=== PATIENT | male | born 2000 | race Caucasian/White ===

== ENCOUNTER 2023-11-16 18:13 | Emergency (ER) | payer OTHER, SELFPAY ==
--- NOTE | ~2023-11-16 | XR_ITS ---
EXAMINATION: XR WRIST, LEFT CLINICAL INFORMATION: Fall with question of fracture COMPARISON: None available. TECHNIQUE: PA, lateral, and oblique views of the left wrist. FINDINGS: There is soft tissue swelling on the dorsum of the wrist with triquetral avulsion fracture again (see clements image). No other fracture. Alignment is anatomic with normal joint spaces. No erosions or abnormal soft tissue calcifications. XR/XR wrist LT 2V IMPRESSION: Triquetral avulsion fracture with associated soft tissue swelling.
[2023-11-16 18:34] VITALS: BP 129/90; BP 130/79; PULSE 76; PULSE 83; RESP 14; TEMP 37.1; O2SAT 100; O2SAT 98; BMI 21.5
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
[2023-11-16 19:35] VITALS: BP 121/84; PULSE 66; RESP 18; TEMP 36.7; O2SAT 100
[2023-11-16] MEDS: Ketorolac Tromethamine 60 MG/2 ML VIAL IM (19:47)
--- OUTSIDE RECORDS SUMMARY | 2023-11-16 20:28 | XMS_ITS | Continuity of Care Document ---
Author Organization [facility] ter Address [address] [place] [id number] Care Team Providers Care Research Chemical Engineer Name Role Phone Not on Staff, PCP Primary Care Physician Unavail able [place] [facility] [place]23 - 03/11/[address] [id number] Discharge Disposition: A-D/C Home Attending Physician: Nick Lopez MD Admitting Physician: Nick Lopez MD Referring Physician: Nick Lopez MD Allergies, Adverse Reactions, Alerts No Known Allergies Immunizations Given and Recorded Vaccine Date Status Refusal Reason tetanus/diphtheria/pertussis, acel(Tdap) 02/24/23 Given Medications acetaminophen 325 mg oral capsule 2 capsule = 650 mg, By Mouth, Every 4 hours, PRN Pain , Moderate, # 20 capsule, 0 Refills, Maintenance, 03/09/23 12:32:00 EDT, Capsule, Partial fill upon patient request if the prescription is for a schedule II opioid drug. Start Date: 03/09/23 Status: Ordered oxyCODONE 5 mg oral tablet 5 mg, 1, tablet, By Mouth, Every 6 hours, PRN, # 20 tablet, Refills 0, Tot. Refills 0, Acute 03/18/23 8:00:00 EDT, Pain , Severe, 03/11/23 8:00:00 EDT, Route to Pharmacy Electronically, [facility]/pharmacy #[id number], Partial fill upon patient request if the pres... Start Date: 03/11/23 Stop Date: 03/18/23 Status: Ordered Percocet-5 Tablet 1 tablet, Tablet, By Mouth, Every 3 hours, PRN for Pain , Mild, or Pain, Moderate, Routine, 03/11/23 9:51:00 EDT Start Date: 03/11/23 Stop Date: 03/11/23 Status: Discontinued Results Radiology Reports * Exam Date Time Procedure Performing Provider Status 03/11/23 9:16 AM C-Arm < 1 Hour Kamryn Amin; Auth (Veri fied) Notes: (C-Arm < 1 Hour) Reason For Exam: fractured clavicle RESULT: C-Arm < 1 Hour Clavicle Complete Left, C-Arm < 1 Hour INDICATION: Reason: fractured clavicle COMPARISON: None. TECHNIQUE: Fluoroscopy support was provided. There was no radiologist in attendance. Fluoroscopy time: 7.1 seconds Technologist time: 20 minutes Exposure: 0.68 mGy FINDINGS: Intraoperative fluoroscopy was performed and a total of 4 spot films of the left clavicle were obtained during the internal fixation procedure. Please refer to the operative note for full details. IMPRESSION: See above. WSN: [id number] Ordering Physician: Nick Lopez Dictated By: Jatinder Dotson MD Dictated Date/Time: 03/11/23 10:10 a Reviewed By: Jatinder Dotson MD Signed By: Jatinder Dotson MD Signed Date/Time: 03/11/23 10:10 am Transcribed By: JOSE Transcribed Date/Time: 03/11/23 10:09 am * Exam Date Time Procedure Performing Provider Status 03/11/23 9:16 AM Clavicle Complete Left Kamryn Amin; Mihaela th (Verified) Notes: (Clavicle Complete Left) Reason For Exam: fractured clavicle RESULT: Clavicle Complete Left Clavicle Complete Left, C-Arm < 1 Hour INDICATION: Reason: fractured clavicle COMPARISON: None. TECHNIQUE: Fluoroscopy support was provided. There was no radiologist in attendance. Fluoroscopy time: 7.1 seconds Technologist time: 20 minutes Exposure: 0.68 mGy FINDINGS: Intraoperative fluoroscopy was performed and a total of 4 spot films of the left clavicle were obtained during the internal fixation procedure. Please refer to the operative note for full details. IMPRESSION: See above. WSN: [id number] Ordering Physician: Nick Lopez Dictated By: Jatinder Dotson MD Dictated Date/Time: 03/11/23 10:10 a Reviewed By: Jatinder Dotson MD Signed By: Jatinder Dotson MD Signed Date/Time: 03/11/23 10:10 am Transcribed By: JOSE Transcribed Date/Time: 03/11/23 10:09 am Vital Signs Most recent to oldest [Reference Range]: 1 2 3 Height 169 cm (03/11/23 6:02 AM) 169 cm (03/09/23 12:29 PM) Weight 63.7 kg (03/09/23 12:29 PM) Oxygen Saturation [94-100 %] 95 % (03/11/23 11:30 AM) 97 % (03/11/23 11:15 AM) 97 % (03/11/23 11:00 AM) Pulse Rate [55-90 bpm] 56 bpm (03/11/23 6:02 AM) Body Mass Index [18.5-24.99 kg/m2] 22.3 kg/m2 (03/09/23 12:29 PM) Blood Pressure [90-138/55-84 mm Hg] 126/81mm Hg (03/11/23 11:30 AM) 126/77mm Hg (03/11/23 11:15 AM) 124/83mm Hg (03/11/23 11:00 AM) Respiratory Rate [16-30 br/min] 12 br/min *L* (03/11/23 11:30 AM) 13 br/min *L* (03/11/23 11:15 AM) 17 br/min (03/11/23 11:08 AM) Temperature [96.8-100.4 DegF] 98.2 DegF (03/11/23 10:45 AM) 98.1 DegF (03/11/23 10:00 AM) 98.1 DegF (03/11/23 6:02 AM) Liters per Minute 6 L/min (03/11/23 10:00 AM) Mode of Delivery (Oxygen) Room air (03/11/23 11:30 AM) Room air (03/11/23 10:15 AM) Simple face mask (03/11/23 10:00 AM) Blood pressure sites Arm, right (03/11/23 10:00 AM) Arm, right (03/11/23 6:02 AM) Temperature Route Temporal (03/11/23 10:45 AM) Temporal (03/11/23 10:00 AM) Temporal (03/11/23 6:02 AM) Dry Weight 60.5 kg (03/11/23 6:02 AM) 63.7 kg (03/09/23 12:29 PM) Weight Obtained Via Patient/family state d (03/09/23 12:29 PM) Dry Weight Obtained Via Standing scale (03/11/23 6:02 AM) Patient/family stated (03/09/23 12:29 PM) Social History Social History Type Response Smoking Status Never smoker; Tobacc o user in household: No entered on: 03/27/14 Sex Note * Dylan Llamas RN: PERFORM Event Display: Discharge/Transfer Note Hospital Authored Date: [id number] Nursing Discharge Note Entered On: 03/11/2023 12:08 EDT Performed On: 03/11/2023 12:06 EDT by Dylan Llamas RN Nursing Discharge Note 2 Discharge Time : 03/11/2023 12:10 EDT Discharge Level of Care at Discharge : Home/[facility]/Foster Care Patient Left Unit Via : Wheelchair Patient Accompanied Off Unit with : Parent DC Instructions Provided & Signed by Pt : Yes Patient Understands D/C Instructions : Yes Patient Instructions Discharge Signed : Yes Did Pt have Specialty Bed or Wound Vac : No Dylan Llamas RN - 03/11/2023 12:06 EDT * Dylan Llamas RN: PERFORM Event Display: Patient Education/Instruction Authored Date: [id number] Inpatient Adult Discharge Instructions [place] [id number] Name: EARL SEYMOUR : 2000 Visit: 03/11/2023 05:51:00 Current Date: 03/11/2023 10:59 Account: [id number] Inpatient Adult Discharge Instructions We would like to thank you for allowing us to assist you with your healthcare needs. The following includes patient education materials and information regarding your injury/illness. Our entire staffstrives to provide an excellent experience for our patients and their families. PLEASE ENSURE YOU FOLLOW-UP PER THE INSTRUCTIONS BELOW! ?? YOUR OPINION IS IMPORTANT TO US! Please complete the survey you may receive by mail or email. Your feedback will be used to make improvements to the healthcare experiences of our patients and their families. Surveys are administered by [employer] ?? If further treatment with your primary care physician or another doctor is recommended, it is important for you to keep the appointment. Call your primary care physician or return to the Emergency Department immediately if your condition worsens, fails to improve, or new symptoms develop. If you need to find a doctor, you can call [facility] Link for a referral at [phone] or toll free at [phone]) or log in to [email or web address].. ?? [facility], in keeping with [facility] guidance, no longer requires face masks for staff, patientsor visitors in most situations. Similiar to time spent indoors at other locations, there is the chance that you were exposed to repiratory viruses during your time with us (such as flu or COVID-19). If you develop symptoms concerning for a viral respiratory infection, please seek testing (and treatment if indicated) from your medical provider or home test kit. ?? You can view and manage your care through the patient portal or by using a health care darrell of your choosing. [employer] is a website that allows you to securely view your medical information including your hospital discharge summary, office visit summaries, medications and follow-up visits. You can also request appointments, renew medications, and request access to your medical information using a health care darrell of your choosing, or just ask a question. You can enroll at [email or web address] or register during your next office visit. You have been discharged from [facility], Patient Care Unit: [facility]. If you have any questions regarding these instructions after you leave, please call us and we will be happy to assist you. [facility] Your Care Team Attending Physician Nick Lopez MD Discharging Providers Nick Lopez MD Reason for Admission LT CLAVICLE FX DS Tests Performed Below is a partial list of the tests performed during your hospitalization. You may have had other tests and procedures not included in this list. Please discuss all test results with your provider. XR C-Arm < 1 Hour XR Clavicle Complete Left Primary Care Provider Not on Staff, PCP Advance Directive Health Care Proxy on File Yes - Health Care Proxy Discharge Vitals Temperature: 98.2 DegF Height: 169 cm Pulse Rate: 56 bpm Weight: 63.7 kg Respiratory Rate: 16 br/min Body Mass Index: 22.3 kg/m2 Systolic Blood Pressure: 130 mm Hg Body surface area: 1.73 Diastolic Blood Pressure:??85 mm Hg??High ?? Oxygen Saturation: 100 % ?? Studies Pending All tests and labs ordered during this hospital stay have been completed unless listed below. Please discuss all pending results with your provider listed above in these instructions. ?? No incomplete studies found What to do next Instructions From Your Doctor Discharge Orders Instructions from your Care Team Please call [facility] at [phone]??to schedule a follow up with Dr Lopez, he would like you to be seen in the office in 2 weeks. ?? You may remove the dressing in 48 hours and shower. Wash gently with soap and water, no scrubbing. Pat dry with a clean towel. No soaking (tub baths, hot tubs, swimming, etc) your incision until Dr Lopez tells you it is okay to do so. ?? Wear your sling unless showering or sleeping, until Dr Lopez tells you can remove it. ?? Avoid any movements at the shoulder. It is okay and you are encouraged to move your hand, wrist, and elbow gently. You Need to Schedule the Following Appointments Follow Up with??Nick Lopez MD When:??Within 1-2 day: call to discuss follow up visit Why: Please call the office in the next few days to schedule a follow up with Dr Lopez in 2 weeks. Where: [address] [place] [address] [place] [address] Discharge Medications EARL SEYMOUR :2000 Visit Date:03/11/2023 Medications: Please continue your medications until treatment is completed or stopped by your provider. Medications not listed below should be discontinued. Discuss any questions related to medications with your provider. What How Much When Instructions Next Dose New Oxycodone (oxyCODONE 5 mg oral tablet) 1 tab(s) Oral Every 6 hours as needed for Pain , Severe Pickup at [facility]/pharmacy #[id number] next dose available at 4:00pm, only take as needed Unchanged Acetaminophen (acetaminophen 325 mg oral capsule) 2 capsule Oral Every 4 hours as needed for Pain , Moderate as needed Pharmacy Information [facility]/pharmacy #[id number]: [address] [place] [phone] Test Results Below is a partial list of the most recent Laboratory test results done prior to this discharge. You may have had other tests and procedures not included in this list. Please discuss all test resultswith your provider. Allergies (NKA means No Known Allergies) NKA Problems No qualifying data available Education Materials Below is the list of Educational Leaflet Providered with your Discharge Instructions. Sling?? Surgery Medical Daystay Surgical Overnight Discharge Instructions?? Having Clavicle Fracture Open Reduction and Internal Fixation (ORIF)?? Valuables and Belongings I fully understand and agree that [facility] accepts no responsibility for all my personal property including clothing, toilet articles, radios, jewelry, dentures, hearing aids, rings, money, or any other property that is in my possession or is brought to me after admission. I understand certain valuables may be placed in a hospital safe for a short period of time. I understand that the hospital is not liable for loss or damage due to accident, fire, or other natural occurrence while said property is in the safe. I accept full responsibility for any personal property that I keep with me, and will not hold the hospital responsible in case of loss or disappearance. I acknowledge that i have been encouraged to send valuables and belongings home. ?? Date for Pt to Sign Valuables/Belongings: 03/11/23 06:41:00 ?? Valuables & Belongings ?? Clothes Electronic devices Jewelry Monetary Items Personal devices Miscellaneous Medications (Valuables) Valuables at Bedside Shirt, Shoes, Undergarments, Other: shorts Cell phone ? Valuables Sent Home ? Valuables Sent to Security ? Other Discharge Information ? Pulmonary Rehab Status?? Pulmonary Rehab Discharge Status?? Respiratory Rate: 16 br/min ? Common Emergency Awareness Tips IS IT A STROKE? Act FAST and Check for these signs: FACE Does the face look uneven? ARM Does one arm drift down? SPEECH Does their speech sound strange? TIME Call at any sign of stroke ?? Heart Attack Signs Chest discomfort: Most heart attacks involve discomfort in the center of the chest and lasts more than a few minutes, or goes away and comes back. It can feel like uncomfortable pressure, squeezing, fullness or pain. Discomfort in upper body: Symptoms can include pain or discomfort in one or both arms, back, neck, jaw or stomach. Shortness of breath: With or without discomfort. Other signs: Breaking out in a cold sweat, nausea, or lightheaded. Remember, MINUTES DO MATTER. If you experience any of these heart attack warning signs, call to get immediate medical attention! ?? Smoking can increase your chances of developing chronic health problems and can cause harmful effects to other family members in your house. If you smoke, you are strongly encouraged to quit. Please call [facility] [employer] Link at [phone] or [phone] ([phone]) or log in to [email or web address] for referrals to smoking cessation programs. ?? 506 Suicide & Crisis Lifeline is available 19/01 if you or someone you know needs to find a reason to keep living. By calling 847 you'll be connected to a skilled, trained counselor at a crisis center in your area. INPATIENT DISCHARGE INSTRUCTIONS SIGNATURE PAGE EARL SEYMOUR Location:[facility] Registration Date and Time:03/11/2023 05:51 EDT Primary Care Physician: Not on Staff, PCP Attending Physician: John MCDUFFIE, Nick Perez, I EARL SEYMOUR, have received the above patient education materials/instructions and have verbalized understanding. If ambulance or transport services are being used I further acknowledge being given a choice of service. ?? If you need to contact me, please call me at this number: . Patient/Procurement Inspector Name: Patient/Procurement Inspector Signature: Relationship to Patient: Witness Name/Signature: Date: * Bessie Albright RN: PERFORM Event Display: Patient Education Leaflets Authored Date: [id number] Sling ?? [id number] Sling A sling is designed to support your arm in a position of rest. It's used for injuries of the hand, forearm, upper arm, and shoulder. A shoulder that is immobilized too long can become stiff and lose range of motion. Your elbow can also get stiff. Follow up with your healthcare provider as advised and don't use the sling longer than directed. ?? Home use ??? Leave the sling in place as long as directed by your healthcare provider. Unless told otherwise, you may remove it when bathing, dressing, and when you go to sleep. ??? If approved by your healthcare provider, you can do gentle pendulum exercises. To do these: o Remove your sling. o Stand or sit with your arm vertical and close to your side. o Relax your shoulder muscles and gently swing the arm forward and back, side to side, and in small circles. o Do this for about 5 minutes once or twice a day. There should be only minimal pain with this exercise. If you have more than minimal discomfort, stop the exercise and call your healthcare provider. ??? The sling is adjustable. If it becomes loose, adjust it so that your forearm is horizontal (level with the ground). Your hand should be level with the elbow. ?? Last Reviewed Date: 2021 ?? [employer]. All rights reserved. This information is not intended as a substitute for professional medical care. Always follow your healthcare professional's instructions. ?? * Bessie Albright RN: PERFORM Event Display: Patient Education Leaflets Authored Date: [id number] Surgery Medical Daystay Surgical Overnight Discharge Instructions ?? 295 Medical Daystay/Surgical Overnight Discharge Instructions ? Since your coordination and judgment may be altered by medication and/or anesthesia, a responsible adult must drive you home from the hospital. ? If you have received medication for pain or sedation while under our care, you should not drive, operate machinery, drink alcohol, or sign any legal documents for 24 hours.?? You should have someone with you at home tonight. ? Remain at home the day of discharge.?? You may be up and about unless otherwise instructed by your physician. ? You may resume your daily prescription medication schedule.?? Any depressant medication should be avoided for 24 hours unless otherwise instructed by your surgeon or anesthesiologist. ? Call your physician for a follow-up appointment.? If you experience unusual or severe pain not relied by your pain medication, excessive bleedingor drainage, persistent nausea and vomiting, excessive swelling or redness, foul odor from incisionsite or fever over 100.6F, you need to call your physician. ? A follow-up phone call by a nurse will be made the day after your procedure.?? If you have stayed with us over night, you will not be receiving a follow-up phone call. ? Nausea and vomiting are a common side effect of prescription pain medication.?? We recommend that pills are not taken on an empty stomach.?? While taking any prescription pain medication you should not drive or drink alcohol. ? * Bessie Albright RN: PERFORM Event Display: Patient Education Leaflets Authored Date: [id number] Having Clavicle Fracture Open Reduction and Internal Fixation (ORIF) ?? [address] Having Clavicle Fracture Open Reduction and Internal Fixation (ORIF) ORIF is a type of treatment to fix a broken bone. It puts the pieces of a broken bone back togetherso they can heal. Open reduction means the bones are put back in place during a surgery. Internal fixation means that special hardware is used to hold the bone pieces together. This helps the bone heal correctly. The procedure is done by an orthopedic surgeon. This is a doctor with special trainingin treating bone, joint, and muscle problems. What to tell your healthcare provider Make sure you tell your healthcare provider about all medicines you take, including qyar-pap-aphpayg medicines, such as aspirin. Tell them about all vitamins, herbs, and other supplements you take. Also tell your provider the last time you ate or drank. And tell your provider if you: ??? Have had any recent changes in your health, such as an illness or fever ??? Are sensitive or allergic to any medicines, latex, tape, or anesthesia (local and general) ??? Are or think you may be ?? Getting ready for your surgery ORIF is sometimes done as emergency surgery after an accident or injury. Before this procedure, a provider will ask about your health history and give you a physical exam. An X-ray may be done to look at your clavicle. In some cases, clavicle fracture ORIF is planned. You may need to stop taking some medicines, such as blood thinners and aspirin, before the surgery. If you smoke, you may need to stop before your surgery. Smoking can delay healing. Talk with your provider if you need help to stop smoking. Also make sure to: ??? Ask a family member or friend to take you home from the hospital. You can't drive yourself. ???Plan some changes at home to help you recover. You may need help at home after the surgery. ??? Follow any directions you???re given for not eating or drinking before the surgery. ??? Follow all other instructions from your provider. You will be asked to sign a consent form that gives your permission to do the surgery. Read the form carefully. Ask questions if something isn't clear. ?? On the day of surgery Your surgeon will explain the details of your surgery. These details will depend on where your injury is and how bad it is. An orthopedic surgeon with a team of specialized nurses will do the surgery. The preparation and surgery may take a couple of hours. In general, you can expect the following: ??? You'll likely have general anesthesia. This will prevent pain and make you sleep through the surgery. Or you may have local anesthesia to numb the area and medicine to help you relax and sleep through the surgery. ??? A provider watches your vital signs, such as your heart rate and blood pressure, during the surgery. ??? After cleaning the skin, your surgeon will make a cut (incision) through the skin and muscle around your clavicle. ??? The surgeon will put the pieces of your broken clavicle bones back into place (reduction). ??? The surgeon will secure the pieces of the broken bones to each other (fixation). They may use screws, metal plates, wires, or pins. ??? Other repairs are made to the area as needed. ??? The surgeon will close the layers of muscle and skin around your claviclewith stitches (sutures) or marychuy. ?? After your surgery Talk with your surgeon about what you can expect after surgery. You may be able to go home the sameday. Or you may need to stay in the hospital overnight. Before leaving the hospital, you'll likely have X-rays taken of your clavicle. This is to check the repair. You'll have some pain after the surgery. Your provider will tell you what pain medicine you can take to help reduce the pain. Avoid certain vnyp-ykj-eruaxfn medicines for pain as instructed. Some of these may interfere with bone healing. You can also use ice packs to help lessen pain and swelling. For a while after your surgery, you must be careful not to move your clavicle. This may mean you'llneed to wear a sling for several weeks. Your provider will tell you when it's safe to move your armagain. Your surgeon may also tell you to eat foods high in calcium and vitamin D to help with bone healing. You may need to take medicine called a blood thinner for a little while after your surgery. Blood thinners stop blood from clotting or clumping together. Follow all your provider???s instructions carefully. ?? Follow-up care Make sure to go to all of your follow-up visits. You may need to have your stitches or marychuy removed a week or so after surgery. You may have physical therapy to improve the strength and movement of your arm. The therapy may include treatments and exercises. Physical therapy improves your chances of a full recovery. Most people are able to return to their normal activities in a few months. ?? When to call your healthcare provider Call your provider if you have any of the following: ??? Fever of 100.4??F (38??C) or higher or as directed by your provider ??? Chills ??? Redness, swelling, or fluid leaking from your incision thatgets worse ??? Pain that gets worse ??? Loss of feeling anywhere in your body ?? Last Reviewed Date: 2021 ?? 7026-6166 [employer]. All rights reserved. This information is not intended as a substitute for professional medical care. Always follow your healthcare professional's instructions. ?? Patient Care team information Care Team Personnel Name: Not on Staff, PCP Position: S Physician (General Medicine) Member Role: PCP Care Team Related Persons Name: BRITTANEY SEYMOUR Address: home [address] [place] [address] Name: LION ANIKET Address: [address] [place] [address]
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
[2023-11-16 22:14] VITALS: BP 123/74; PULSE 63; RESP 18; TEMP 36.7; O2SAT 99
[2023-11-17 00:01] VITALS: BP 123/74; PULSE 63; RESP 18; TEMP 36.7; O2SAT 99
== END 2023-11-17 00:03 | disposition home or self-care (01) ==
PROVIDERS: Emergency Provider Emergency Medicine
DX: S60.212A Contusion of left wrist, initial encounter (principal); S70.312A Abrasion, left thigh, initial encounter; V13.4XXA Pedal cycle driver injured in collision with car, pick-up truck or van in traffic accident, initial encounter; Y93.55 Activity, bike riding; Y92.414 Local residential or business street as the place of occurrence of the external cause; Y99.9 Unspecified external cause status
CPT/HCPCS: 29125; 73100; 96372; 99284; J1885

== ENCOUNTER 2023-11-24 14:55 | Outpatient (AMB) | payer OTHER, SELFPAY ==
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
== END 2023-11-24 15:36 | disposition home or self-care (01) ==
PROVIDERS: Visit Provider Physician Assistant
DX: S62.112A Displaced fracture of triquetrum [cuneiform] bone, left wrist, initial encounter for closed fracture (principal)
CPT/HCPCS: 99203

== ENCOUNTER → 2023-11-24 14:55 | Outpatient (BNVA) | payer OTHER, SELFPAY | PROVIDERS: Visit Provider Physician Assistant ==

== ENCOUNTER 2023-12-30 12:43 | Outpatient (REF) | payer OTHER, SELFPAY ==
--- NOTE | ~2023-12-30 | XR_ITS ---
EXAMINATION: XR HAND, LEFT CLINICAL INFORMATION: Pain COMPARISON: X-ray 11/16/2023 TECHNIQUE: PA, lateral, and oblique views of the left hand. FINDINGS: Redemonstrated is a triquetral avulsion fracture, with decreased conspicuity of the fracture plane. Dorsal wrist soft tissue swelling is improved as compared to previous. No new acute fractures seen. Alignment is anatomic, joint spaces are maintained. XR/XR hand LT min 3V IMPRESSION: Triquetral fracture with some healing changes.
== END 2023-12-30 12:44 | disposition home or self-care (01) ==
LOC: HO.HOSX 12:43
PROVIDERS: Visit Provider Physician Assistant
DX: M79.642 Pain in left hand (principal); S62.112D Displaced fracture of triquetrum [cuneiform] bone, left wrist, subsequent encounter for fracture with routine healing; X58.XXXD Exposure to other specified factors, subsequent encounter
CPT/HCPCS: 73130

== ENCOUNTER 2023-12-30 14:02 | Outpatient (AMB) | payer OTHER, SELFPAY ==
--- NOTE | 2023-12-30 14:20 | MHC.OFFVIS ---
Intake Visit Reasons: O/V Left Triquetral avulsion fracture - 11/16/23 Intake Note: Amanuel a 23 year old right hand dominant male who presents today for a follow up of left wrist fracture, DOI 11/16/23. Patient reports heis doing well, states no pain or discomfort. He states stiffness with brace removed. Allergies No Known Allergies Allergy (Verified 12/30/23 14:43) HPI HPI O/V Left Triquetral avulsion fracture - 11/16/23: Details: 23-year-old right hand dominant male who returns to the office today for a follow-up of left wrist fracture, 11/16/23. She states she has no pain or discomfort and is doing well overall. She also reports stiffness with removal of the brace. She has no other concerns today. 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 Review of Systems Const All systems reviewed & are unremarkable except as noted in HPI and below Physical Exam Const General: cooperative, healthy appearing, comfortable, no acute distress, well developed and alert Orientation/consciousness: patient oriented x3 HEENT Head: Yes normal to inspection, Yes normocephalic and Yes atraumatic Eyes General: appearance normal, both eyes and all related structures Resp Effort & Inspection: normal respiratory effort and able to speak in complete sentences Cardio Rate: regular rate Peripheral pulses: Peripheral pulses 2+ throughout GI Palpation (GI): Soft to palpation Skin Lesions: no lesions Rashes: no rashes Neuro General: patient oriented x3 Extrem Other: Left hand: Normal to inspection. resolved welling through the dorsum of the hand without tenderness along the triquetral bone. NVI. Results Reviewed Results Reviewed: Xrays were obtained in the office today and personally reviewed by me of the left hand show stable fracture pattern Assessment & Plan Assessment & Plan (1) Fracture of triquetral bone of left wrist: Code(s): S62.112A - Displaced fracture of triquetrum [cuneiform] bone, left wrist, initial encounter for closed fracture Category: Medical Plan He will discontinue the sling and increase activities as tolerated. He will see me back as needed. Orders: Orders XR hand LT min 3V 12/30/23 M79.642 - Pain in left hand Patient Instructions: Scribed for Garrett Charlton PA-C, by Manish Flores biomedical specialist, on 12/30/2023 at 2:00 PM EST.? I, Garrett Charlton PA-C, have personally reviewed and agree with the information entered by the scribe. Coding Level of Care Code Global (43485) Diagnoses Fracture of triquetral bone of left wrist S62.112A
== END 2023-12-30 15:22 | disposition home or self-care (01) ==
PROVIDERS: Visit Provider Physician Assistant
DX: S62.112A Displaced fracture of triquetrum [cuneiform] bone, left wrist, initial encounter for closed fracture (principal)
CPT/HCPCS: 99212